=== PATIENT | female | born 1955 | race Caucasian/White ===

== ENCOUNTER → 2017-04-18 | Outpatient (CLI) | payer BC ==
[~2017-04-18] MED LIST: SKELAXIN400 M1 PO
== END | disposition home or self-care (01) ==
DX: M17.11 Unilateral primary osteoarthritis, right knee (principal); R26.2 Difficulty in walking, not elsewhere classified; M25.561 Pain in right knee; M25.661 Stiffness of right knee, not elsewhere classified; M62.81 Muscle weakness (generalized); Z74.1 Need for assistance with personal care
CPT/HCPCS: 97150 GO; 97161 GP; 97165 GO; 97530 GP

== ENCOUNTER 2017-05-01 21:54 | Inpatient (IN) | payer BC ==
[~2017-05-01] VITALS: Ht 160 cm; Wt 73.0 kg
[~2017-05-01 21:54] MED LIST changes: +ALLERCLEAR D-21 EACH PO; +AWAKE200 MG PO; +EFFEXOR75 MG PO; +FEROSUL325 MG PO; +FISH OIL 1,4001 EACH PO; +MOTRIN IB200 MG PO; +MULTI-VITAMIN1 EAC3 PO; +PRINIVIL20 MG PO; +TURMERIC500 M2 PO; +ULTRAM50 MG PO; +VITAMIN B COMP1 EACH PO
[2017-05-02 12:51] VITALS: BP 121/68
[2017-05-02 19:58] LABS: HEMATOCRIT 38.1 % (36.0-46.0); MCH 30.3 PG (29.0-34.0); MCHC 32.8 G/DL (30.0-36.0); MCV 92.3 FL (83-99); PLATELET COUNT 293 K/uL (156-360); RBC DIS.WIDTH-CV 12.5 % (11.8-14.6); RBC DIS.WIDTH-SD 42.4 % (39-53); RED BLOOD COUNT 4.13 M/uL (3.80-5.20); WHITE BLOOD COUNT 8.3 K/uL (4.1-10.2)
[2017-05-02 20:08] LABS: HEMOGLOBIN 12.5 G/DL (11.9-15.5)
[2017-05-02 20:31] VITALS: BP 97/60
[2017-05-03 00:09] VITALS: BP 103/56
[2017-05-03 04:10] VITALS: BP 108/53
[2017-05-03 07:04] LABS: HEMATOCRIT 31.9 % (36.0-46.0); MCV 92.2 FL (83-99)
[2017-05-03 07:05] LABS: HEMOGLOBIN 10.5 G/DL (11.9-15.5)
[2017-05-03 07:18] LABS: CHLORIDE 102 MEQ/L (99-109); CREATININE 0.7 MG/DL (0.6-1.3); GFR ESTIMATE (CALCULATED) > 59 mL/min/; GLUCOSE 99 mg/dL (70-99); POTASSIUM 4.4 MEQ/L (3.7-5.4); SODIUM 138 MEQ/L (136-147); UREA NITROGEN (BUN) 15 mg/dL (9-23)
[2017-05-03 08:28] VITALS: BP 108/63
[2017-05-03 11:40] VITALS: BP 112/65
[2017-05-03 16:03] VITALS: BP 131/71
[2017-05-03 19:55] VITALS: BP 144/85
[2017-05-04 00:25] VITALS: BP 134/71; BP 144/85
[2017-05-04 04:04] VITALS: BP 153/76
[2017-05-04 06:00] LABS: HEMATOCRIT 33.6 % (36.0-46.0); HEMOGLOBIN 11.3 G/DL (11.9-15.5); MCV 89.4 FL (83-99)
[2017-05-04 08:03] VITALS: BP 127/68
[2017-05-04] MEDS ORDERED: SENNA PLUS TAB1 EACH PO (08:14)
[2017-05-04] MEDS ORDERED: ENDOCET 5-3251 EACH PO (08:14)
[2017-05-04] MEDS ORDERED: LOVENOX40 MG/0.4 SC (08:14)
[2017-05-04 12:00] VITALS: BP 111/55
== END 2017-05-04 14:00 | DRG 470 ==
LOC: ENRESERV 21:54 → 2SOUTH 05-02 08:55 → 3WEST 05-02 20:25
PROVIDERS: Orthopaedic Surgery
DX: M17.11 Unilateral primary osteoarthritis, right knee (principal); Z87.81 Personal history of (healed) traumatic fracture; Z87.891 Personal history of nicotine dependence; I10 Essential (primary) hypertension; R73.03 Prediabetes; F43.23 Adjustment disorder with mixed anxiety and depressed mood; G89.29 Other chronic pain; E78.5 Hyperlipidemia, unspecified
CPT/HCPCS: 73560; 76000; 80048; 85014; 85018; 85027; C1713; C1776; J0131; J0690; J1170; J1650; J2250; J2370; J2405; J2795; J3010; J7050